=== PATIENT | male | born 1990 | race African-American/Black ===

== ENCOUNTER 2016-12-21 12:16 | Inpatient (IN) | payer OTHER ==
--- NOTE | ~2016-12-21 | HP ---
Unit #: [id number] #: [id number] Patient: ELIZABETH GOMEZ [id number] [place] [address] [id number] I MR#: [id number] NAME: ELIZABETH GOMEZ. ROOM: 12 Age: 26 Sex: M Admission Date: 12/21/2016 : 1990 Attending Physician: Yunier Martin M.D. Admitting Physician: Yunier Martin M.D. Primary Care Physician: Primary Care Physician No HISTORY AND PHYSICAL HISTORY OF PRESENT ILLNESS Elizabeth is a 26 year old admitted to [address] [place] [address] reporting auditory hallucinations. PAST MEDICAL HISTORY Nothing significant. PAST SURGICAL HISTORY Nothing reported. ALLERGIES No known drug allergies. SOCIAL HISTORY Smokes one-half pack per day. Denies alcohol. Admits to using marijuana on a daily basis. FAMILY HISTORY Medically noncontributory. REVIEW OF SYSTEMS CONSTITUTIONAL: No fever or chills. HEENT: Denies any sore throat, ear pain or runny nose. CARDIOVASCULAR: Denies chest pain, irregular heart rhythm or palpitations. CHEST: Denies shortness of breath or cough. No hemoptysis. GASTROINTESTINAL: Denies nausea, vomiting, diarrhea or chronic constipation. ENDOCRINE: Denies history of increased thirst or urination. No recent significant weight loss or gain. GENITOURINARY: Denies dysuria, frequency, or hematuria. SKIN: Denies any rashes. HEMATOLOGIC: Denies history of increased bleeding or bruising. MUSCULOSKELETAL: Denies any hot, swollen joints. No generalized muscle pain. NEUROLOGIC: Denies problems with vision or speech. No frequent, severe headaches. No numbness, tingling or weakness in any extremities. Denies loss of bladder or bowel control. CURRENT MEDICATIONS 1. Seroquel 50 mg q.4 h. p.r.n. 2. Milk of Magnesia p.r.n. 3. Maalox p.r.n. Unit #: [id number] #: [id number] Patient: ELIZABETH GOMEZ 4. Tylenol p.r.n. 5. Nicotine patch 14 mg daily PHYSICAL EXAMINATION GENERAL: Alert, well-nourished, in no apparent distress. VITAL SIGNS: Blood pressure 148/78, heart rate 82, respirations 16, temperature 98.6. WEIGHT: 225 pounds. HEIGHT: 5'9". SKIN: Warm and dry without rash or lesion. HEENT: Normocephalic. TMs not viewed. Oral and nasal passages clear. Conjunctivae clear. Pupils equal, round and reactive to light and accommodation. Extraocular movements intact. NECK: Supple without lymphadenopathy or thyromegaly. HEART: Regular rate and rhythm without murmur. LUNGS: Clear. ABDOMEN: Soft, nontender. : Not done. EXTREMITIES: No evidence of cyanosis, clubbing or edema. Moves all extremities without focal deficit. NEUROLOGICAL: Unable to complete extended exam. He does move all extremities without focal deficit. Hand medical intern is equal and gait is normal. IMPRESSION Psychiatric admission RECOMMENDATIONS PSYCHIATRIC: Per psychiatrist. MEDICAL: I see no contraindications to participating in facility's activities. MEDICAL PROGNOSIS Good. MEDICAL CONDITION Stable. Dictated by... Betsy Wallace P.A.-C. for Kayden Pinzon/omid TD: 12/22/2016 05:16 JOB #: [id number] Unit #: [id number] #: [id number] Patient: ELIZABETH GOMEZ HISTORY AND PHYSICAL X Betsy Wallace HISTORY AND PHYSICAL
--- NOTE | ~2016-12-21 | DS ---
Unit #: [id number] #: [id number] Patient: ELIZABETH GOMEZ [id number] [facility] [address] [place] [address] [id number] I MR#: [id number] NAME: ELIZABETH GOMEZ. ROOM: [facility] Age: 26 Sex: M Admission Date: 12/21/2016 : 1990 Discharge Date: 12/24/2016 Attending Physician: Yunier Martin M.D. Primary Care Physician: Primary Care Physician No DISCHARGE SUMMARY REASON FOR ADMISSION The patient is a 26-year-old male, admitted with recurrence of psychosis following a period of medication noncompliance. HOSPITAL COURSE The patient was admitted to the [address] [place] [address] unit. He reported history of positive response to Trilafon and Remeron, and these medications were restarted. The patient tolerated the medications well and his improvement was remarkable and rapid. By 12/24/2016, the patient was in bright spirits and requested discharge. He exhibited absolutely no signs or symptoms of psychosis and was pleasant and cooperative and fairly appropriate in his interactions with peers and staff. Discharge was ordered. FINAL DIAGNOSES Schizoaffective disorder. DISPOSITION ON DISCHARGE The patient is discharged on the following medications: Trilafon 4 mg t.i.d. for psychosis and Remeron 15 mg at h.s. for depression. DISCHARGE INSTRUCTIONS No dietary or physical restrictions were placed upon the patient at the time of discharge. FOLLOWUP Followup will take place through the auspices of community mental health resources. PROGNOSIS His prognosis is considered fair. Dictated by... Yunier Martin M.D. CB/billy TD: 12/25/2016 04:33 JOB #: [id number] Unit #: [id number] #: [id number] Patient: ELIZABETH GOMEZ DISCHARGE SUMMARY X Yunier Martin MD X DISCHARGE SUMMARY
--- NOTE | ~2016-12-21 | PN ---
Unit #: [id number] #: [id number] Patient: ELIZABETH GOMEZ [id number] [facility] [address] [place] [address] [id number] MR#: [id number] NAME: ELIZABETH GOMEZ. ROOM: P112 Age: 26 Sex: M Admission Date: 12/21/2016 : 1990 Attending Physician: Yunier Martin M.D. Admitting Physician: Yunier Martin M.D. Primary Care Physician: Primary Care Physician Lauren GOMEZ PROGRESS NOTES DATE 12/23/2016 DISCUSSION The patient is in much brighter spirits today and is reporting reduction in auditory hallucinations. Should he sustain progress discharge could take place as early as tomorrow. Dictated by... Yunier Martin M.D. CB/garland TD: 12/23/2016 16:02 JOB #: [id number] [facility] PROGRESS NOTES X Yunier Martin MD X PROGRESS NOTE
--- NOTE | ~2016-12-21 | PA ---
Unit #: [id number] #: [id number] Patient: ELIZABETH GOMEZ [id number] [place] [address] [id number] I MR#: [id number] NAME: ELIZABETH GOMEZ. ROOM: 12 Age: 26 Sex: M Admission Date: 12/21/2016 : 1990 Date of Assessment: 12/22/2016 Attending Physician: Yunier Martin M.D. Admitting Physician: Yunier Martin M.D. Primary Care Physician: Primary Care Physician No PSYCHIATRIC ASSESSMENT IDENTIFYING INFORMATION The patient is a 26-year-old male admitted with recurrent auditory hallucinations of a command type. CHIEF COMPLAINT "I'm hearing voices." INFORMANT Patient, reliability is fair. HISTORY OF PRESENT ILLNESS The patient is a 26-year-old male admitted after he had reported positive auditory hallucinations of a command type telling him to harm other people. The patient reports that he has in the past been prescribed Trilafon and Remeron but has not been on these medications per his report. The patient is currently reporting auditory hallucinations telling him to harm himself and others as well as visual hallucinations. The patient denies any abuse of psychoactive substances. He lives at home with a roommate. His mother when he was 18 years ago, and he has had minimal support from family since that time. PAST PSYCHIATRIC HISTORY The patient reports a history of diagnosis of schizoaffective disorder and reports a history of positive response to Trilafon and Remeron. PAST MEDICAL HISTORY Noncontributory. MEDICATIONS None at this time. The patient reports previous treatment with Neurontin and Trilafon. ALLERGIES None reported. FAMILY HISTORY Noncontributory. SOCIAL HISTORY The patient lives with a roommate. He is (1) __. He is the father of an out of wedlock child whom he visits every 2 weeks. He reports that he is a smoker and also abuses cannabis infrequently. Unit #: [id number] #: [id number] Patient: ELIZABETH GOMEZ MENTAL STATUS EXAMINATION Examination at this time reveals the patient to be a well-developed well-nourished male appearing her stated age. He is in no apparent physical distress at the time of the examination. He is awake, alert, and oriented in all spheres. His mood is mildly dysphoric, his affect is constricted. Speech is generally well-coherent. There are no gross deficits in memory or cognition noted. Intelligence is judged to be in the average range based on fund of knowledge. The patient is cooperative the interview. He is currently denying suicidal or homicidal ideation. He has positive command auditory hallucinations. His judgment and insight appear to be intact. ASSETS AND LIABILITIES The patient's assets: Motivation for change. Liabilities: Lack of resources. DIAGNOSTIC IMPRESSION 1. Schizoaffective disorder. 2. Cannabis use disorder. TREATMENT PLAN The patient remains hospitalized for safety and stabilization. We will restart Trilafon at a dose of 4 mg 3 times daily and Remeron 15 mg at h.s., but the patient does not recall his doses. The patient will participate in appropriate order of milieu activities, and suicide precautions remain in place. ESTIMATED LENGTH OF STAY 3 to 5 days. Dictated by... Yunier Martin M.D. OTIS/daniele TD: 12/22/2016 14:41 JOB #: [id number] PSYCHIATRIC ASSESSMENT X Yunier Martin MD X PSYCHIATRIC ASSESSMENT
== END 2016-12-24 16:00 | disposition home or self-care (01) | DRG 885 ==
LOC: P1S 12:16
DX: F25.9 Schizoaffective disorder, unspecified (principal); R45.851 Suicidal ideations; R44.0 Auditory hallucinations; F12.20 Cannabis dependence, uncomplicated; F17.200 Nicotine dependence, unspecified, uncomplicated; F32.9 Major depressive disorder, single episode, unspecified

== ENCOUNTER 2017-01-15 14:57 | Emergency (ER) | payer OTHER ==
--- NOTE | ~2017-01-15 | EKG ---
PATIENT: ELIZABETH GOMEZ UNIT #: [id number] Ventricular Rate: 120 BPM Atrial Rate: 120 BPM P-R Interval: 152 ms QRS Duration: 80 ms Q-T Interval: 304 ms QTC Calculation(Bezet): 429 ms P [place]: 66 degrees Calculated R [place]: 45 degrees Calculated T [place]: 10 degrees Diagnosis Line: Sinus tachycardia Diagnosis Line: Nonspecific T wave abnormality Diagnosis Line: Otherwise normal ECG Diagnosis Line: When compared with ECG of 02-APR-2012 11:04, Diagnosis Line: Vent. rate has increased BY 59 BPM Diagnosis Line: Nonspecific T wave abnormality now evident in Diagnosis Line: Inferior leads Diagnosis Line: Nonspecific T wave abnormality now evident in Diagnosis Line: Lateral leads Diagnosis Line: Confirmed by ALEXA CHRISTINE MD ([id number]) on 01/17/2017 Diagnosis Line: 10:54:14 PM INTERPRETING MD: EMMETT LANDIN
--- NOTE | ~2017-01-15 | CR72 ---
[facility] A Service of [facility] & [facility] RADIOLOGY TEXT RESULTS PATIENT: ELIZABETH GOMEZ LOCATION: [facility] : [birth year] UNIT #: [id number] AGE: [address]: Himanshu Cuevas MD SEX: M ORDER DR: [id number] [facility] [address] [place], [place] [address] [id number] MR#: [id number] Acc #: [id number] NAME: ELIZABETH GOMEZ. : 1990 SEX: M STUDY DATE/TIME: 01/15/2017 14:26 UNIT: [facility] ROOM: STUDY DESCRIPTION: CR Chest Single View Portable Attending Physician: Prashant Cuevas M.D. Ordering Physician: Ed Tony Mercer M.D. Primary Care Physician: No Primary Care Physician MEDICAL IMAGING REPORT This report is preliminary unless electronic signature is present EXAM Portable chest HISTORY 26-year-old male chest pain, shortness of air congestion since 04:00 p.m. yesterday, smoker. FINDINGS A single AP portable view of the chest shows both lungs to be clear. The heart is normal in size. The mediastinal contour is normal. No significant bone abnormalities are seen. IMPRESSION Normal portable chest. Dictated by... Krystyna Chew M.D. THIS IS AN ELECTRONICALLY VERIFIED REPORT Krystyna Chew M.D. at 01/16/2017 10:51 PM CAROLIN/jesús TD: 01/16/2017 01:47 JOB #: [id number] MEDICAL IMAGING REPORT Page 1 of 1 COPY
[2017-01-15 15:32] LABS: BASOPHIL% 0.5 % (0-2.5); EOSINOPHIL% 0.4 % (0.0-7.0); HEMATOCRIT 45.5 % (38.0-50.0); HEMOGLOBIN 14.9 gm/dL (13.0-16.0); LYMPHOCYTE# 2.2 X10e3 (1.0-3.5); LYMPHOCYTE% 32.5 % (17.0-45.0); MEAN CELL VOLUME 85.6 FL (83-96); MEAN CORPUSCULAR HEMOGLOBIN 28.1 PG (28-34); MEAN CORPUSCULAR HGB CONC 32.8 g/dL (30-36); MEAN PLATELET VOLUME 8.3 FL (6.5-11.5); MONOCYTE# 0.6 X10e3 (0-1.0); NEUTROPHIL# 3.8 X10e3 (1.5-7.1); NEUTROPHIL% 57.6 % (40-75); PLATELET COUNT 208 X10e3 (140-420); RED BLOOD COUNT 5.32 X10e (3.90-5.60); RED CELL DISTRIBUTION WIDTH 13.7 % (11.0-15.5); WHITE BLOOD COUNT 6.7 X10e3 (4.0-10.5)
[2017-01-15 15:34] LABS: DIFF IND NO
[2017-01-15 15:43] LABS: POC - CKMB 2.9 ng/mL (0.0-7.9); POC - TROPONIN <0.05 ng/mL (<=0.05)
[2017-01-15 15:49] LABS: INR 1.1; PROTHROMBIN TIME (PATIENT) 11.4 SECONDS (9.6-11.5)
[2017-01-15 16:22] LABS: CALCIUM SERUM 9.5 mg/dL (8.4-10.2); CREATININE SERUM 0.8 mg/dL (0.6-1.4); POTASSIUM 3.9 mmol/L (3.5-5.1)
== END 2017-01-15 17:10 | disposition home or self-care (01) ==
LOC: CED 14:57
PROVIDERS: Emergency Medicine
DX: R07.89 Other chest pain (principal)
CPT/HCPCS: 36415; 71010; 80048; 82553; 84484; 85025; 85379; 85610; 85730; 93005; 96374; 99284; J1885

== ENCOUNTER 2017-03-23 01:00 | Inpatient (IN) | payer OTHER ==
--- NOTE | ~2017-03-23 | PA ---
Unit #: [id number] #: [id number] Patient: ELIZABETH GOMEZ [id number] [facility] [address] [place] [address] [id number] MR#: [id number] NAME: ELIZABETH GOMEZ. ROOM: [facility] Age: 26 Sex: M Admission Date: 03/23/2017 : 1990 Date of Assessment: 03/23/2017 Attending Physician: Yunier Martin M.D. Admitting Physician: Yunier Martin M.D. Primary Care Physician: Primary Care Physician No PSYCHIATRIC ASSESSMENT IDENTIFYING INFORMATION The patient is a 26-year-old male admitted with increasing paranoia and auditory hallucinations related to a history of medication noncompliance. CHIEF COMPLAINT None given. INFORMANT(S) Patient, reliability is good. HISTORY OF PRESENT ILLNESS The patient is a 26-year-old male last admitted to this facility in November and early December of this year. The patient has a history of positive response to a combination of Remeron and Trilafon, but has been off these medications for some time and has had recurrence of psychotic symptoms including command hallucinations and paranoid thinking. The patient had reported to [facility] yesterday with these complaints and was placed on a 72-hour hold. When seen today, the patient is calm and cooperative and agreeable to reinitiation of prescribed medications. For more complete history of present illness please refer to previously dictated notes. PAST PSYCHIATRIC HISTORY Reviewed, no changes. PAST MEDICAL HISTORY Reviewed, no changes. MEDICATIONS Trilafon, Remeron. ALLERGIES None. FAMILY HISTORY Reviewed, no changes. SOCIAL HISTORY Reviewed, no changes. MENTAL STATUS EXAMINATION Examination at this time reveals the patient to be a well-developed Unit #: [id number] #: [id number] Patient: ELIZABETH GOMEZ well-nourished male appearing stated age. She is in no apparent physical distress at the time of examination. He is awake, alert, and oriented in all spheres. His mood is mildly dysphoric, his affect constricted. Speech is generally well-coherent. There are no gross deficits in memory or cognition noted. Intelligence is judged to be in the average range based on fund of knowledge. The patient is cooperative throughout the interview. He is currently reporting no suicidal ideation. He does endorse positive paranoid thinking and auditory hallucinations. His judgment and insight appear to be somewhat impaired. ASSETS AND LIABILITIES The patient's assets: Motivation for change. Liabilities: Poor compliance with treatment. DIAGNOSTIC IMPRESSION 1. Schizoaffective disorder. 2. Cannabis use disorder. TREATMENT PLAN The patient remains hospitalized for safety and stabilization. We will restart the previously effective medication combination of Trilafon 4 mg 3 times daily and Remeron 50 mg at bedtime. The patient will participate in appropriate order of milieu activities. ESTIMATED LENGTH OF STAY 5 days. Dictated by... Yunier Martin M.D. Mee TD: 03/23/2017 11:07 JOB #: [id number] PSYCHIATRIC ASSESSMENT Page 1 of 1 X Yunier Martin MD X PSYCHIATRIC ASSESSMENT
--- NOTE | ~2017-03-23 | PN ---
Unit #: [id number] #: [id number] Patient: ELIZABETH GOMEZ [id number] [facility] [address] [place] [address] [id number] I MR#: [id number] NAME: ELIZABETH GOMEZ. ROOM: 61 Age: 26 Sex: M Admission Date: 03/23/2017 : 1990 Attending Physician: Yunier Martin M.D. Admitting Physician: Yunier Martin M.D. Primary Care Physician: Primary Care Physician Lauren GOMEZ PROGRESS NOTES DATE 03/24/2017 DISCUSSION The patient seems in brighter spirits today. He is compliant with medications and keller routine and is reporting reduction in auditory hallucinations. Should he sustain progress, discharge should take place as early as tomorrow. Dictated by... Yunier Martin M.D. CB/daniele TD: 03/24/2017 14:41 JOB #: [id number] [facility] PROGRESS NOTES Page 1 of 1 X Yunier Martin MD PROGRESS NOTE
--- NOTE | ~2017-03-23 | DS ---
Unit #: [id number] #: [id number] Patient: ELIZABETH GOMEZ [id number] [facility] [address] [place] [address] [id number] I MR#: [id number] NAME: ELIZABETH GOMEZ. ROOM: [facility] Age: 26 Sex: M Admission Date: 03/23/2017 : 1990 Discharge Date: 03/25/2017 Attending Physician: Yunier Martin M.D. Primary Care Physician: Primary Care Physician No DISCHARGE SUMMARY REASON FOR ADMISSION The patient is 26-year-old male with history of schizoaffective disorder, admitted with recurrence of psychosis and depressive symptoms following a period of medication noncompliance. HOSPITAL COURSE The patient was admitted to the -[facility] unit and restarted on previously prescribed Trilafon and Remeron. He showed rapid and dramatic response to reinitiation of his medications and by 03/25/2017, he was in much brighter spirits. He requested discharge on that date, and denied any recurrence of psychotic symptoms. The importance of consistent compliance with medications was discussed at length with the patient. Discharge was ordered. FINAL DIAGNOSES Schizoaffective disorder. DISPOSITION ON DISCHARGE The patient is discharged on the following medications: Trilafon 4 mg t.i.d. for psychosis and Remeron 15 mg at bedtime for depression. DISCHARGE INSTRUCTIONS No dietary or physical restrictions were placed on the patient at the time of discharge. FOLLOWUP Followup will take place through the auspices of community mental health resources. PROGNOSIS The patient's prognosis is considered fair. Dictated by... Yunier Martin M.D. CB/billy TD: 03/25/2017 14:16 JOB #: [id number] Unit #: [id number] #: [id number] Patient: ELIZABETH GOMEZ DISCHARGE SUMMARY Page 1 of 1 X Yunier Martin MD X DISCHARGE SUMMARY
--- NOTE | ~2017-03-23 | HP ---
Unit #: [id number] #: [id number] Patient: ELIZABETH GOMEZ [id number] [place] [address] [id number] MR#: [id number] NAME: ELIZABETH GOMEZ. ROOM: 61 Age: 26 Sex: M Admission Date: 03/23/2017 : 1990 Attending Physician: Yunier Martin M.D. Admitting Physician: Yunier Martin M.D. Primary Care Physician: Primary Care Physician No HISTORY AND PHYSICAL HISTORY OF PRESENT ILLNESS Elizabeth is a 26 year old admitted to [facility] reporting auditory hallucinations. PAST MEDICAL HISTORY Nothing significant. PAST SURGICAL HISTORY Nothing reported. ALLERGIES No known drug allergies. SOCIAL HISTORY Smokes one-half pack per day. Denies alcohol. Admits to using marijuana. FAMILY HISTORY Medically noncontributory. REVIEW OF SYSTEMS CONSTITUTIONAL: No fever or chills. HEENT: Denies any sore throat, ear pain or runny nose. CARDIOVASCULAR: Denies chest pain, irregular heart rhythm or palpitations. CHEST: Denies shortness of breath or cough. No hemoptysis. GASTROINTESTINAL: Denies nausea, vomiting, diarrhea or chronic constipation. ENDOCRINE: Denies history of increased thirst or urination. No recent significant weight loss or gain. GENITOURINARY: Denies dysuria, frequency, or hematuria. SKIN: Denies any rashes. HEMATOLOGIC: Denies history of increased bleeding or bruising. MUSCULOSKELETAL: Denies any hot, swollen joints. No generalized muscle pain. NEUROLOGIC: Denies problems with vision or speech. No frequent, severe headaches. No numbness, tingling or weakness in any extremities. Denies loss of bladder or bowel control. CURRENT MEDICATIONS 1. Remeron 15 mg q.h.s. 2. Trilafon 4 mg t.i.d. 3. Milk of Magnesia p.r.n. 4. Maalox p.r.n. Unit #: [id number] #: [id number] Patient: ELIZABETH GOMEZ 5. Tylenol p.r.n. 6. Nicotine patch 14 mg q day PHYSICAL EXAMINATION GENERAL: Alert, well-nourished, in no apparent distress. VITAL SIGNS: Blood pressure 130/80, heart rate 70, respirations 16, temperature 98.6. WEIGHT: 209 pounds. HEIGHT: 5'8". SKIN: Warm and dry without rash or lesion. HEENT: Normocephalic. TMs not viewed. Oral and nasal passages clear. Conjunctivae clear. Pupils equal, round and reactive to light and accommodation. Extraocular movements intact. NECK: Supple without lymphadenopathy or thyromegaly. HEART: Regular rate and rhythm without murmur. LUNGS: Clear. ABDOMEN: Soft, nontender. : Not done. EXTREMITIES: No evidence of cyanosis, clubbing or edema. Moves all extremities without focal deficit. NEUROLOGICAL: Grossly within normal limits. Cranial Nerves: II: Visual asencio are intact. III, IV AND : Extraocular movements are intact. Pupils are equal, round and reactive to light. V: Facial sensation is grossly normal. VII: Facial movements and expression are normal. VIII: Auditory acuity grossly intact. IX, X: Uvula is midline. Phonation is normal. XI: Patient shrugs shoulders and turns head normally. XII: Tongue protrudes in the midline. Sensory and Motor Function: Sensory and motor sensation is grossly normal. Motor: moves all extremities well. Coordination: Gait is normal. Deep Tendon Reflexes: Intact. IMPRESSION Psychiatric admission RECOMMENDATIONS PSYCHIATRIC: Per psychiatrist. MEDICAL: I see no contraindications to participating in facility's activities. MEDICAL PROGNOSIS Good. MEDICAL CONDITION Stable. Dictated by... Betsy Wallace P.A.-C. for Kayden Pinzon/omid TD: 03/24/2017 01:08 Unit #: [id number] #: [id number] Patient: ELIZABETH GOMEZ JOB #: [id number] HISTORY AND PHYSICAL Page 1 of 1 X Betsy Wallace HISTORY AND PHYSICAL
[2017-03-25 09:50] LABS: URINE APPEARANCE CLEAR; URINE BILIRUBIN NEG (NEG); URINE BLOOD NEG (NEG); URINE COLOR YELLOW; URINE GLUCOSE NEG (NEG); URINE KETONE NEG (NEG); URINE LEUKOCYTE ESTERASE 1+ (NEG); URINE NITRATE NEG (NEG); URINE PH 6.5 (5-8); URINE PROTEIN NEG (NEG); URINE SPECIFIC GRAVITY 1.008 (1.003-1.035); URINE UROBILINOGEN 0.2 MG/DL (NEG)
[2017-03-25 09:55] LABS: URBCS1 AUWI 0-2 /[HPF] (0-2); URINE BACTERIA AUWI NEG (NEGATIVE); URINE SQUAMOUS EPITHELIAL CELL NONE SEEN /[HPF]
[2017-03-25 11:05] LABS: AMPHETAMINE NEG (NEG); BARBITURATES NEG (NEG); BENZODIAZEPINES NEG (NEG); COCAINE NEG (NEG); MARIJUANA POS (NEG); OPIATES NEG (NEG); TRICYCLIC ANTIDEPRESSANTS NEG (NEG); U METHADONE NEG (NEG)
== END 2017-03-25 14:30 | disposition home or self-care (01) | DRG 885 ==
LOC: P2L 08:46
PROVIDERS: Specialist
DX: F25.9 Schizoaffective disorder, unspecified (principal); Z91.14 Patient's other noncompliance with medication regimen; F17.210 Nicotine dependence, cigarettes, uncomplicated; F12.90 Cannabis use, unspecified, uncomplicated
CPT/HCPCS: 80307; 81003